=== PATIENT | male | born 1990 | race Caucasian/White ===

== ENCOUNTER 2017-04-27 17:47 | Emergency (ER) | payer MEDICAID ==
[~2017-04-27 17:47] MED LIST: [UNRECOGNIZED DRUG - CODE]
--- NOTE | 2017-04-27 19:20 | NUR ---
CALLED PT. PT IS NOT IN THE LOBBY AND THE FRONT OF THE HOSPITAL.
--- NOTE | 2017-04-27 19:20 | NUR ---
PATIENT LEFT WITHOUT BEING SEEN BY DR. OSULLIVAN. NO FURTHER CARE PROVIDED FOR PATIENT.
== END 2017-04-27 19:20 | disposition left against medical advice (07) ==
LOC: MED 17:47
DX: R06.02 Shortness of breath (principal); Z53.21 Procedure and treatment not carried out due to patient leaving prior to being seen by health care provider

== ENCOUNTER 2018-01-10 05:20 | Emergency (ER) | payer MEDICAID ==
[~2018-01-10] VITALS: Ht 160 cm; Wt 72.6 kg
[2018-01-10 05:29] VITALS: BP 137/78
[2018-01-10] MEDS: ALBUTEROL SULFATE/IPRATROPIU 3 ML SOL IH ONE (05:37)
[2018-01-10 06:13] VITALS: BP 130/80
== END 2018-01-10 06:10 | disposition home or self-care (01) ==
LOC: MED 05:20
DX: J45.901 Unspecified asthma with (acute) exacerbation (principal); R03.0 Elevated blood-pressure reading, without diagnosis of hypertension; Z79.899 Other long term (current) drug therapy
CPT/HCPCS: 94640; 99283; J7620

== ENCOUNTER 2018-07-04 08:04 | Emergency (ER) | payer MEDICAID ==
[~2018-07-04] VITALS: Ht 160 cm; Wt 72.6 kg
[2018-07-04 08:05] VITALS: BP 131/70
[2018-07-04 08:45] VITALS: BP 131/70
== END 2018-07-04 08:46 | disposition home or self-care (01) ==
LOC: MED 08:04
DX: G44.209 Tension-type headache, unspecified, not intractable (principal); J44.9 Chronic obstructive pulmonary disease, unspecified; Z79.899 Other long term (current) drug therapy
CPT/HCPCS: 99281

== ENCOUNTER 2018-10-22 08:53 | Emergency (ER) | payer MEDICAID ==
[~2018-10-22] VITALS: Ht 160 cm; Wt 77.1 kg
--- NOTE | 2018-10-22 08:57 | NUR ---
PT AMB TO ER BED 4
[2018-10-22 09:01] VITALS: BP 129/80
--- NOTE | 2018-10-22 09:08 | NUR ---
BIB SELF STATING THAT HE LOST HIS INHALER WHEN HE MOVED, HASNT NEEDED IT IN A FEW MONTHS BUT RECENTLY HAS BEEN SHORT OF BREATH WITH ACTIVITY. STATES NO SOB AT THIS TIME, NO RESP DISTRESS NOTED AT THIS TIME. DENIES ANY OTHER SYMPTOMS AT THIS TIME.
[2018-10-22 10:07] VITALS: BP 129/80
--- NOTE | 2018-10-22 10:08 | NUR ---
Patient discharged with v/s stable. Written and verbal after care instructions given and explained. Patient alert, oriented and verbalized understanding of instructions. Ambulatory with steady gait. All questions addressed prior to discharge. ID band removed. Patient advised to follow up with PMD. Rx of ALBUTEROL INH given. Patient educated on indication of medication including possible reaction and side effects. Opportunity to ask questions provided and answered.
== END 2018-10-22 10:08 | disposition home or self-care (01) ==
LOC: MED 08:53
DX: J45.909 Unspecified asthma, uncomplicated (principal); J44.9 Chronic obstructive pulmonary disease, unspecified; Z76.0 Encounter for issue of repeat prescription; Z79.899 Other long term (current) drug therapy
CPT/HCPCS: 99283

== ENCOUNTER 2019-01-11 06:58 | Emergency (ER) | payer MEDICAID ==
[~2019-01-11] VITALS: Ht 160 cm; Wt 72.6 kg
[2019-01-11 07:03] VITALS: BP 125/76
--- NOTE | 2019-01-11 07:03 | NUR ---
Dr. Cruz evaluating patient at bedside.
--- NOTE | 2019-01-11 07:03 | NUR ---
PT TAKEN TO BED 4
--- NOTE | 2019-01-11 07:10 | NUR ---
C/O FEELING SOB X1 WEEK. PT REPORTS USING AN INHALER THAT PROVIDED RELIEF, BUT HE LOST IT 2 DAYS AGO AND HAS BEEN FEELING SOB SINCE THEN. LUNGS CLEAR AND EQUAL BILAT THROUGHOUT, BREATHING UNLABORED, NO ACCESORY MUSCLE USE NOTED, SPO2 99% RA. PT ALERT AND ANSWERING QUESTIONS APPROPRIATELY. BED IN LOW POSITION, PT PLACED ON SPO2 MONITOR AT BEDSIDE.
[2019-01-11] MEDS ORDERED: cefTRIAXone 1,000 MG in LIDOCAINE MPF 1% - 5 mL VIAL 2.1 ML IM ONE (07:15)
[2019-01-11] MEDS ORDERED: IBUPROFEN 600 MG TAB PO ONE (07:15)
[2019-01-11] MEDS ORDERED: ALBUTEROL 0.083% 2.5 MG/3 ML NEBU INH ONE (07:20)
--- NOTE | 2019-01-11 07:32 | NUR ---
[facility] THERAPY AND RESPIRATORY DRUG GIVEN ORDERED ENCOURAGED PATIENT FOR DEEP BREATHING DURING THERAPY
--- NOTE | 2019-01-11 07:35 | NUR ---
Breathing treatment administered by respiratory therapist at bedside.
[2019-01-11 08:20] VITALS: BP 122/78
== END 2019-01-11 08:17 | disposition home or self-care (01) ==
LOC: MED 06:58
DX: J06.9 Acute upper respiratory infection, unspecified (principal); J44.9 Chronic obstructive pulmonary disease, unspecified; Z79.899 Other long term (current) drug therapy
CPT/HCPCS: 94640; 99283; J7613

== ENCOUNTER 2019-02-06 22:29 | Emergency (ER) | payer MEDICAID ==
[~2019-02-06] VITALS: Ht 160 cm; Wt 72.6 kg
[2019-02-06 22:49] VITALS: BP 144/80
--- NOTE | 2019-02-06 22:51 | NUR ---
TO LOBBY A/W BED AMBULATORY
--- NOTE | 2019-02-06 23:35 | NUR ---
PT AMBULATED TO BED 2
--- NOTE | 2019-02-06 23:40 | NUR ---
PT TAKEN TO BED 2.
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
[2019-02-07] MEDS ORDERED: KETOROLAC 30 MG/ML VIAL IM ONE (00:05)
[2019-02-07] MEDS ORDERED: DIAZEPAM 5 MG TAB PO ONE (00:05)
--- NOTE | 2019-02-07 00:46 | NUR ---
PT REPORTS RELIEF OF PAIN POST SPOUT LINER.
[2019-02-07 00:47] VITALS: BP 139/79
--- NOTE | 2019-02-07 00:47 | NUR ---
Patient discharged with v/s stable. Written and verbal after care instructions given and explained. Patient alert, oriented and verbalized understanding of instructions. Ambulatory with steady gait. All questions addressed prior to discharge. ID band removed. Patient advised to follow up with PMD. Rx of VALIUM, NAPROSYN given. Patient educated on indication of medication including possible reaction and side effects. Opportunity to ask questions provided and answered.
== END 2019-02-07 00:47 | disposition home or self-care (01) ==
LOC: MED 22:29
DX: S39.012A Strain of muscle, fascia and tendon of lower back, initial encounter (principal); J44.9 Chronic obstructive pulmonary disease, unspecified; Z79.899 Other long term (current) drug therapy; V89.2XXA Person injured in unspecified motor-vehicle accident, traffic, initial encounter; Y93.89 Activity, other specified; Y92.89 Other specified places as the place of occurrence of the external cause; Y99.8 Other external cause status
CPT/HCPCS: 96372; 99283; J1885

== ENCOUNTER 2019-02-16 05:43 | Emergency (ER) | payer MEDICAID ==
[~2019-02-16] VITALS: Ht 160 cm; Wt 72.6 kg
[2019-02-16 05:45] VITALS: BP 125/90
--- NOTE | 2019-02-16 05:45 | NUR ---
TO BED # 08 AMBULATORY
--- NOTE | 2019-02-16 05:50 | NUR ---
28/M BIB FAMILY, C/O 05/30 INTERMITTENT PRESSURE-LIKE BL TEMPORAL HEADACHE, X2 DAYS. DENIES COUGH, FEVER, N/V. DENIES CP OR SOB. PT AOX4, PERRLA 3MM, SKIN NORMAL WARM AND DRY, SPO2 98% ON RA, RR 14 EVEN AND UNLABORED. LUNG SOUNDS WITH MILD WHEEZE. HX ASTHMA OTC IBUPOFEN WITHOUT RELIEF
[2019-02-16] MEDS ORDERED: NACL 0.9% 1,000 ML IV ONE (06:00)
[2019-02-16] MEDS ORDERED: KETOROLAC 15 MG/ML VIAL IVP ONE (06:00)
[2019-02-16] MEDS: LORazepam 2 MG/ML VIAL IVP ONE ×2 (06:00→06:32)
[2019-02-16] MEDS ORDERED: PROCHLORPERAZINE 10 MG/2 ML VIAL IVP ONE (06:00)
--- NOTE | 2019-02-16 06:00 | NUR ---
DR BOWEN AT BEDSIDE
--- NOTE | 2019-02-16 06:15 | NUR ---
PT WITH EPISODE OF NAUSEA AND DRY HEAVING/VOMITING AFTER SUCCESSFUL IV INSERTION. DR BOWEN AT BEDSIDE.
[2019-02-16] MEDS ORDERED: ONDANSETRON 4 MG/2 ML VIAL IVP ONE (06:20)
[2019-02-16] MEDS ORDERED: ALBUTEROL 0.083% 2.5 MG/3 ML NEBU INH ONE (06:20)
--- NOTE | 2019-02-16 06:47 | NUR ---
[facility] THERAPY AND RESPIRATORY DRUG GIVEN ORDERED
[2019-02-16 07:02] VITALS: BP 130/72
--- NOTE | 2019-02-16 07:03 | NUR ---
Patient discharged with v/s stable. Written and verbal after care instructions given and explained. Patient alert, oriented and verbalized understanding of instructions. Ambulatory with steady gait. All questions addressed prior to discharge. ID band removed. Patient advised to follow up with PMD. Rx of ZOFRAN ODT, TRAMADOL given. Patient educated on indication of medication including possible reaction and side effects. Opportunity to ask questions provided and answered.
== END 2019-02-16 07:03 | disposition home or self-care (01) ==
LOC: MED 05:43
DX: G43.901 Migraine, unspecified, not intractable, with status migrainosus (principal); J44.9 Chronic obstructive pulmonary disease, unspecified; Z79.899 Other long term (current) drug therapy
CPT/HCPCS: 94640; 96374; 96375; 99283; J0780; J1885; J2060; J2405; J7030; J7613

== ENCOUNTER 2019-03-18 06:58 | Emergency (ER) | payer MEDICAID ==
[~2019-03-18] VITALS: Ht 160 cm; Wt 78.5 kg
--- NOTE | 2019-03-18 07:07 | NUR ---
PT AMB TO ER BED 11
[2019-03-18 07:08] VITALS: BP 128/78
[2019-03-18] MEDS ORDERED: ALBUTEROL SULFATE/IPRATROPIU 3 ML SOL IH ONE (07:15)
--- NOTE | 2019-03-18 07:38 | NUR ---
RT IS AT BEDSIDE.
--- NOTE | 2019-03-18 07:38 | NUR ---
C/O SOB X2 DAYS. DESCRIBED UNABLE TO TAKE DEEP BREATHS. DECRESED BREATH SOUNDS TO BASES WITH MILD WHEEZING.
--- NOTE | 2019-03-18 07:39 | NUR ---
ADMITTING DX: ADULT-ASTHMA LOC AWAKE AND ALERT VERBALLY RESPONSIVE TO COUNSELOR AID VERBAL COMMANDS EDUCATION PROVIDED TO PATIENT WITH ACKNOWLEDGEMENT OM [facility] THERAPY AND RESPIRATORY DRUG FOREMENTIONED GIVEN NOTED ENCOURAGED INTERMITENT DEEP BREATHING DURING THERAPY PEAK FLOW before 160 l/m after 320 l/m
--- NOTE | 2019-03-18 07:42 | NUR ---
X-RAY AT BEDSIDE.
[2019-03-18 08:20] VITALS: BP 113/76
--- NOTE | 2019-03-18 10:06 | NUR ---
Patient discharged with v/s stable. Written and verbal after care instructions given and explained. Patient alert, oriented and verbalized understanding of instructions. Ambulatory with steady gait. All questions addressed prior to discharge. ID band removed. Patient advised to follow up with PMD. Rx of ALBUTEROL 90MCG given. Patient educated on indication of medication including possible reaction and side effects. Opportunity to ask questions provided and answered.
== END 2019-03-18 08:20 | disposition home or self-care (01) ==
LOC: MED 06:58
DX: J45.901 Unspecified asthma with (acute) exacerbation (principal); Z79.899 Other long term (current) drug therapy
CPT/HCPCS: 71045; 94640; 99283; J7620; Q0092

== ENCOUNTER 2019-06-10 06:53 | Emergency (ER) | payer MEDICAID ==
[~2019-06-10] VITALS: Ht 160 cm; Wt 77.1 kg
[2019-06-10 07:02] VITALS: BP 115/84
[2019-06-10] MEDS ORDERED: ALBUTEROL SULFATE/IPRATROPIU 3 ML SOL IH ONE (07:15)
[2019-06-10] MEDS ORDERED: methylPREDNISolone SS 125 MG/2 ML VIAL IM ONE (07:15)
--- NOTE | 2019-06-10 07:16 | NUR ---
PT BIB SELF C/O DIFFICULTY BREATHING X 02:00 THIS MORNING. RR EVEN AND NON-LABORED, SYMMETRICAL, WHEEZES THROUGHOUT. PT STATES HE LOST HIS INHALER. DENIES PAIN AT THIS TIME. PMH: ASTHMA RX:ALBUTEROL
--- NOTE | 2019-06-10 07:25 | NUR ---
ADMITTING DX: ADULT-ASTHMA LOCAWAKE AND ALERT C/O SOB VERBALLY RESPONSIVE EDUCATION PROVIDED TO PATIENT WITH ACKNOWLEDGEMENT ONN [facility] THERAPY AND RESPIRATORY DRUG FOREMENTIONED GIVEN ASO RDERED ENCOURAGED INTERMITTENT DEEP BREATHING DURING THERAPY PEAK FLOW: before 140 L after 240 L
--- NOTE | 2019-06-10 07:28 | NUR ---
RT AT BEDSIDE
[2019-06-10 07:50] VITALS: BP 114/75
== END 2019-06-10 07:50 | disposition home or self-care (01) ==
LOC: MED 06:53
DX: J45.901 Unspecified asthma with (acute) exacerbation (principal); Z79.899 Other long term (current) drug therapy
CPT/HCPCS: 94640; 96372; 99284; J2930; J7620; 99283

== ENCOUNTER 2019-07-08 06:03 | Emergency (ER) | payer MEDICAID ==
[~2019-07-08] VITALS: Ht 160 cm; Wt 77.1 kg
[2019-07-08 06:06] VITALS: BP 115/72
--- NOTE | 2019-07-08 06:09 | NUR ---
PT AMB TO BED 4
--- NOTE | 2019-07-08 06:12 | NUR ---
28 Y/O MALE C/O ASTHMA EXACERBATION X4 HRS. WHEEZING HEARD UPON INHALATION AND EXHALATION. DENIES COUGH. PT ABLE TO SPEAK IN FULL, COMPLETE SENTENCES. NO ACCESSORY MUSCLE USE. RR DEEP, UNLABORED. DENIES CHEST PAIN. PT SITTING UPRIGHT IN BED CALM AND PLEASANT. VSS. MEDHX: ASTHMA ALLERGIES: NKA
[2019-07-08] MEDS ORDERED: ALBUTEROL 0.083% 2.5 MG/3 ML NEBU INH ONE (06:15)
--- NOTE | 2019-07-08 06:21 | NUR ---
Chi simons in ED - 07/08/19 at [email or web address] SWAN AT BEDSIDE EXAMINING PT.
--- NOTE | 2019-07-08 06:21 | NUR ---
Dr. Morrison examining patient.
--- NOTE | 2019-07-08 06:24 | NUR ---
Respiratory Therapist at bedside for respiratory intervention.
[2019-07-08] MEDS ORDERED: predniSONE 20 MG TAB PO ONE (06:25)
--- NOTE | 2019-07-08 06:41 | NUR ---
STATES RELIEF OF SOB. WHEEZING NOT HEARD UPON AUSCULTATION. RR EVEN AND UNLABORED. VSS.
[2019-07-08 06:58] VITALS: BP 109/74
== END 2019-07-08 06:59 | disposition home or self-care (01) ==
LOC: MED 06:03
DX: J45.901 Unspecified asthma with (acute) exacerbation (principal); Z79.899 Other long term (current) drug therapy
CPT/HCPCS: 94640; 99283; J7512; J7613

== ENCOUNTER 2019-10-20 09:37 | Emergency (ER) | payer MEDICAID ==
[~2019-10-20] VITALS: Ht 160 cm; Wt 77.2 kg
[2019-10-20 09:39] VITALS: BP 128/68
--- NOTE | 2019-10-20 09:45 | NUR ---
28/M BIB FAMILY C/O COUGH,SOB SINCE LAST NIGHT. PT KNOWN ASTHMATIC, BUT LOST HIS INHALER. NO MEDS TAKEN. PMH: ASTHMA. PATIENT STATES PAIN OF 0/10 AT THIS TIME. PATIENT POSITIONED FOR COMFORT; HOB ELEVATED; BEDRAILS UP X1; BED DOWN. ER MD MADE AWARE OF PT STATUS.
[2019-10-20] MEDS ORDERED: ALBUTEROL SULFATE/IPRATROPIU 3 ML SOL IH ONE (09:50)
--- NOTE | 2019-10-20 09:55 | NUR ---
RT AT BEDSIDE FOR BREATHING TREATMENT.
[2019-10-20 10:10] VITALS: BP 128/68
== END 2019-10-20 10:10 | disposition home or self-care (01) ==
LOC: MED 09:37
DX: J45.901 Unspecified asthma with (acute) exacerbation (principal); Z79.899 Other long term (current) drug therapy
CPT/HCPCS: 94640; 99283